=== PATIENT | female | born 1990 | race Two or more races ===

== ENCOUNTER 2018-02-10 15:39 | Emergency (ER) | payer BC ==
[~2018-02-10] VITALS: Ht 167.6 cm; Wt 65.8 kg
--- NOTE | 2018-02-10 15:55 | NUR ---
Abdominal Pain "crampy pain started about a week or so. I think I need US". PAIN LEVEL FLUCTUATES FROM 3 TO 8/10. AOX4, VSS, RESPIRATIONS EVEN AND UNLABORED. SKIN WARM TO TOUCH, DRY, INTACT. NO ACUTE DISTRESS NOTED. FAMILY AT BEDSIDE. READY FOR EVAL.
--- NOTE | 2018-02-10 15:55 | NUR ---
URINE SENT TO STAT LAB
--- NOTE | 2018-02-10 16:07 | NUR ---
DR MOORE AT BEDSIDE
--- NOTE | 2018-02-10 17:25 | NUR ---
US TECH AT BEDSIDE
[2018-02-10 17:26] LABS: APPEARANCE,URINE Clear (CLEAR); BILIRUBIN,URINE Negative (NEGATIVE); BLOOD, URINE Trace-intact Ery/uL (NEGATIVE); COLOR,URINE Yellow (YELLOW); KETONES,URINE Negative (NEGATIVE); LEUKOCYTE ESTERASE ,URINE Negative (NEGATIVE); NITRITE, URINE Negative (NEGATIVE); PROTEIN,URINE Negative (NEGATIVE); UGLUCOSE Negative (NEGATIVE); UROBILINOGEN,URINE 0.2 EU/dL (0.2)
--- NOTE | 2018-02-10 17:30 | NUR ---
Barrera solorzano in EDM - 02/10/18 at [address] MOORE WITH PELVIC EXAM. PT TOLERATED WELL
--- NOTE | 2018-02-10 17:43 | NUR ---
ASSISTED DR MOORE WITH PELVIC EXAM. PT TOLERATED WELL
[2018-02-10 17:44] LABS: BACTERIA,URINE Rare /HPF (None Seen); MUCUS,URINE Few /LPF (None Seen); SQUAMOUS EPITHELIAL CELL,UR 0-2 /HPF (None Seen)
--- NOTE | 2018-02-10 18:35 | NUR ---
Barrera solorzano in EDM - 02/10/18 at 1851 by ELOY Patient discharged to home in stable condition. Written and verbal after care instructions given. Patient verbalizes understanding of instruction.
--- NOTE | 2018-02-10 18:36 | NUR ---
VERBAL D/C INSTRUCTIONS GIVEN BY DR MOORE
[2018-02-10 18:50] VITALS: BP 105/62
== END 2018-02-10 18:40 | disposition home or self-care (01) ==
LOC: ER 15:43
DX: R10.2 Pelvic and perineal pain (principal); A74.9 Chlamydial infection, unspecified
CPT/HCPCS: 76856-TC; 81000-TC; 84703-TC; 87086-TC; 87210-TC; 87491; 87591; A4606; A6402; Z7610

== ENCOUNTER 2018-11-01 09:15 | Emergency (ER) | payer BC ==
[~2018-11-01] VITALS: Ht 167.6 cm; Wt 62.6 kg
--- NOTE | 2018-11-01 09:25 | NUR ---
C/O RT FLANK PAIN, RECENTLY TAKING ABX FOR UTI PER PT. AA/OX4, UA SENT. NO DISTRESS NOTED.
[2018-11-01] MEDS ORDERED: ACETAMINOPHEN ES 500 MG TABLET ONE (09:50)
[2018-11-01] MEDS ORDERED: ONDANSETRON HCL/PF 4 MG/2 ML VIAL ONE (09:55)
[2018-11-01 09:56] LABS: BASOPHILS % (AUTO) 0.3 % (0.0-2.0); EOSINOPHILS % (AUTO) 0.8 % (0.0-6.0); HEMATOCRIT 34 % (33-45); HEMOGLOBIN 11.7 g/dL (11.5-14.8); LYMPHOCYTES # (AUTO) 1.6 /CMM (0.8-4.8); LYMPHOCYTES % (AUTO) 10.5 % (20.0-44.0); MEAN CORPUSCULAR HGB CONC 34 g/dl (31.0-36.0); MEAN CORPUSCULAR VOLUME 92 fL (82-100); MONOCYTES # (AUTO) 0.8 /CMM (0.1-1.30); MONOCYTES % (AUTO) 5.6 % (2.0-12.0); NEUTROPHILS # (AUTO) 12.3 /CMM (1.8-8.9); NEUTROPHILS % (AUTO) 82.8 % (43.0-81.0); PLATELET COUNT (AUTO) 232 /CMM (150-450); RED BLOOD CELL COUNT(AUTO) 3.69 MIL/uL (4.0-5.2); WHITE BLOOD COUNT (AUTO) 14.8 K/uL (4.3-11.0)
[2018-11-01] MEDS ORDERED: ONDANSETRON HCL/PF 4 MG/2 ML VIAL IVP ONE (10:00)
[2018-11-01] MEDS ORDERED: ACETAMINOPHEN ES 500 MG TABLET PO ONE (10:00)
[2018-11-01] MEDS ORDERED: IV NS 0.9% 1,000 ML BAG IV ONE (10:00)
[2018-11-01 10:02] LABS: CALCIUM, SERUM 8.7 mg/dL (8.5-10.1); CREATININE 0.6 mg/dL (0.6-1.3); POTASSIUM 3.3 mmol/L (3.5-5.1)
[2018-11-01 10:10] LABS: BILIRUBIN,URINE Negative (NEGATIVE); BLOOD, URINE Moderate Ery/uL (NEGATIVE); COLOR,URINE Yellow (YELLOW); KETONES,URINE Negative (NEGATIVE); LEUKOCYTE ESTERASE ,URINE Large (NEGATIVE); NITRITE, URINE Negative (NEGATIVE); PROTEIN,URINE Negative (NEGATIVE); UGLUCOSE Negative (NEGATIVE); UROBILINOGEN,URINE 0.2 EU/dL (0.2)
[2018-11-01 10:12] LABS: APPEARANCE,URINE Hazy (CLEAR)
[2018-11-01 10:31] LABS: ALBUMIN 3.1 g/dL (3.4-5.0); BILIRUBIN,DIRECT 0.1 mg/dL (0.0-0.2); BILIRUBIN,TOTAL 0.2 mg/dL (0.2-1.0); TOTAL PROTEIN, SERUM 6.9 g/dL (6.4-8.2)
[2018-11-01 10:31] LABS: BACTERIA,URINE Rare /HPF (None Seen); RBC,URINE 0-3 /HPF (0-2); SQUAMOUS EPITHELIAL CELL,UR Few /HPF (None Seen)
[2018-11-01] MEDS ORDERED: CEFTRIAXONE 1GM BAG (ER ONLY) 0 ML IV ONE (10:47)
[2018-11-01] MEDS ORDERED: CEFTRIAXONE 1GM BAG (ER ONLY) 1 GM/50 ML PIGGYBACK IV ONE (11:00)
[2018-11-01] MEDS ORDERED: CEFTRIAXONE 1GM BAG (ER ONLY) 50 ML IV ONE (11:01)
[2018-11-01 11:13] VITALS: BP 94/53
--- NOTE | 2018-11-01 11:14 | NUR ---
Patient denies pain at this time. IV removed. Catheter intact and site benign. Pressure and 4x4 applied to site. No bleeding noted. Patient discharged to home in stable condition. Written and verbal after care instructions given. Patient verbalizes understanding of instruction.
== END 2018-11-01 11:13 | disposition home or self-care (01) ==
LOC: ER 09:16
DX: O23.00 Infections of kidney in pregnancy, unspecified trimester (principal); Z3A.00 Weeks of gestation of pregnancy not specified
CPT/HCPCS: 36415; 80048; 80076; 81001; 83690; 84702; 85025; 87086; 96365; 96375; 99284; J0696; J2405; 81000-TC; 87186-TC

== ENCOUNTER 2023-06-18 02:30 | Emergency (ER) | payer BC ==
[~2023-06-18] VITALS: Ht 167.6 cm; Wt 59.0 kg
[2023-06-18 03:25] VITALS: TEMP 99.3
[2023-06-18] MEDS ORDERED: MORPHINE SULFATE INJ 4 MG/ML DISP.SYRIN ONE (03:26)
[2023-06-18] MEDS ORDERED: ONDANSETRON HCL/PF 4 MG/2 ML VIAL ONE (03:26)
[2023-06-18] MEDS: IV NS 0.9% 1,000 ML BAG IV ONE (03:39)
[2023-06-18] MEDS: MORPHINE SULFATE INJ 2 MG/ML DISP.SYRIN IV ONE (03:39)
[2023-06-18] MEDS: ONDANSETRON HCL/PF 4 MG/2 ML VIAL IVP ONE (03:39)
[2023-06-18 03:40] VITALS: BP 103/60; O2SAT 97
[2023-06-18 04:09] LABS: BASOPHILS # (AUTO) 0.1 K/uL (0.0-0.2); BASOPHILS % (AUTO) 0.5 % (0.0-2.0); EOSINOPHILS # (AUTO) 0.2 K/uL (0.0-0.7); EOSINOPHILS % (AUTO) 1.5 % (0.0-6.0); HEMATOCRIT 36 % (33-45); HEMOGLOBIN 11.7 g/dL (11.5-14.8); LYMPHOCYTES # (AUTO) 1.9 K/uL (0.8-4.8); LYMPHOCYTES % (AUTO) 13.8 % (20.0-44.0); MEAN CORPUSCULAR HEMOGLOBIN 28 PG (26.0-33.0); MEAN CORPUSCULAR HGB CONC 32 g/dl (31.0-36.0); MEAN CORPUSCULAR VOLUME 86 fL (82-100); MONOCYTES % (AUTO) 7.2 % (2.0-12.0); NEUTROPHILS # (AUTO) 10.6 K/uL (1.8-8.9); PLATELET COUNT (AUTO) 302 K/uL (150-450); RED BLOOD CELL COUNT(AUTO) 4.23 MIL/uL (4.0-5.2); RED CELL DISTRIBUTION WIDTH 13.7 % (11.5-15.0); WHITE BLOOD COUNT (AUTO) 13.8 K/uL (4.3-11.0)
[2023-06-18 04:09] LABS: APPEARANCE,URINE CLEAR (CLEAR); BILIRUBIN,URINE NEGATIVE (NEGATIVE); BLOOD, URINE 2+ Ery/uL (NEGATIVE); COLOR,URINE YELLOW (YELLOW); KETONES,URINE TRACE mg/dL (NEGATIVE); LEUKOCYTE ESTERASE ,URINE 2+ (NEGATIVE); NITRITE, URINE NEGATIVE (NEGATIVE); PROTEIN,URINE 1+ mg/dl (NEGATIVE); UGLUCOSE NEGATIVE (NEGATIVE); UROBILINOGEN,URINE 0.2 EU/dL (0.2)
[2023-06-18 04:16] LABS: PREGNANCY TEST URINE QUAL NEGATIVE (NEGATIVE)
[2023-06-18] MEDS: CEFTRIAXONE 1GM BAG (ER ONLY) 1 GM/50 ML PIGGYBACK IV ONE (04:34)
[2023-06-18 04:47] LABS: BILIRUBIN,DIRECT 0.1 mg/dL (0.0-0.2); BILIRUBIN,TOTAL 0.5 mg/dL (0.2-1.0); CALCIUM, SERUM 8.5 mg/dL (8.5-10.1); CREATININE 0.8 mg/dL (0.6-1.3); POTASSIUM 3.2 mmol/L (3.5-5.1); TOTAL PROTEIN, SERUM 7.9 g/dL (6.4-8.2)
[2023-06-18] MEDS ORDERED: CEFTRIAXONE 1GM BAG (ER ONLY) 50 ML IV ONE (04:55)
[2023-06-18] MEDS: KETOROLAC TROMETHAMINE 15 MG/ML VIAL IV ONE (05:01)
[2023-06-18 05:17] LABS: ADD URINE CULTURE YES; BACTERIA,URINE 1+ /HPF (None Seen); MUCUS,URINE Few /LPF (None Seen)
[2023-06-18] MEDS ORDERED: CEPH500C2 PO (05:22)
[2023-06-18] MEDS ORDERED: TYL2T PO (05:22)
== END 2023-06-18 05:45 | disposition home or self-care (01) ==
LOC: ER 02:36
DX: N39.0 Urinary tract infection, site not specified (principal); D72.829 Elevated white blood cell count, unspecified; R10.2 Pelvic and perineal pain; Z87.448 Personal history of other diseases of urinary system
CPT/HCPCS: 99285; 74176; 96365; 96361; 96375 ×2; 85025; 80048; 87086; 83690; 80076; 84703; 81001; 36415; 84702; J2405; J7030; J0696; J1885; J2270